=== PATIENT | male | born 1955 | race African-American/Black ===

== ENCOUNTER 2017-11-22 03:00 | Inpatient (IN) | payer MEDICARE, MEDICAID ==
[~2017-11-22] VITALS: Ht 177.8 cm; Wt 116.1 kg
[~2017-11-22 03:00] MED LIST: CIPRO; FLAGYL; NORCO
[2017-11-22 03:40] LABS: BASOPHILS % 0.7 % (0.0-2.0); EOSINOPHILS % 4.2 % (0.0-5.0); HEMATOCRIT. 36.3 % (42.0-52.0); HEMOGLOBIN. 12.3 g/dL (14.0-18.0); MEAN CORPUSCULAR HEMOGLOBIN 29.1 pg (28.0-32.0); MEAN CORPUSCULAR VOLUME 86.2 fL (80.0-94.0); MEAN PLATELET VOLUME 7.7 fl (7.4-10.4); MONOCYTES % 13.4 % (2.0-8.0); NEUTROPHILS % 41.7 % (40.0-76.0); PLATELET 189 x1000/uL (130-400); RED BLOOD CELL COUNT 4.21 mill/uL (4.7-6.1); RED CELL DISTRIBUTION WIDTH 14.1 % (11.6-14.6)
[2017-11-22] MEDS ORDERED: NITROGLYCERIN OINT 1GM/INCH UDPKT TD ONE (03:45)
[2017-11-22 03:46] LABS: CHLORIDE 110 mEq/L (98-107)
[2017-11-22] MEDS ORDERED: ONDANSETRON HCL 4MG/2ML INJ IV STA (04:36)
[2017-11-22] MEDS ORDERED: MORPHINE SULFATE 4 MG/ML CPJ (NOT FOR IM USE) IV STA (04:36)
[2017-11-22] MEDS ORDERED: SODIUM CHLORIDE 0.9% 1,000 ML IV SCH (04:39)
[2017-11-22] MEDS ORDERED: IOHEXOL-350 100 ML BOTTLE ONE (06:29)
[2017-11-22] MEDS ORDERED: DOCUSATE SODIUM 100MG CAPSULE PO PRN (07:00)
[2017-11-22] MEDS ORDERED: ACETAMINOPHEN 325MG TABLET PO PRN (07:00)
[2017-11-22] MEDS ORDERED: NA PHOS,M-B/NA PHOS,DI-BA ENEMA 118ML PR PRN (07:00)
[2017-11-22] MEDS ORDERED: CLONIDINE 0.1MG TABLET PO PRN (07:00)
[2017-11-22] MEDS ORDERED: MAGNESIUM/ALUMINUM HYDROXIDE/SIMETHICONE 30ML UDC PO PRN (07:00)
[2017-11-22] MEDS ORDERED: NITROGLYCERIN 0.4MG TABLET SL SL PRN (07:00)
[2017-11-22] MEDS ORDERED: TRAMADOL 50MG TABLET PO PRN (07:00)
[2017-11-22] MEDS ORDERED: DEXTROSE 50% WATER 50ML SYRINGE IV PRN (07:00)
[2017-11-22] MEDS ORDERED: ONDANSETRON HCL 4MG/2ML INJ IV PRN (07:00)
[2017-11-22] MEDS ORDERED: LORAZEPAM 0.5MG TABLET PO PRN (07:00)
[2017-11-22] MEDS ORDERED: IPRATROPIUM/ALBUTEROL 0.5-3(2.5)MG/3ML NEB INH PRN (07:00)
[2017-11-22] MEDS ORDERED: GUAIFENESIN 200MG/10ML SUGAR FREE UDC PO PRN (07:00)
[2017-11-22 08:25] LABS: ETHANOL BLOOD < 10 mg/dL
[2017-11-22 08:27] LABS: TOTAL IRON BINDING CAPACITY 267 ug/dL (250-450)
[2017-11-22 08:28] LABS: HDL CHOLESTEROL 29 mg/dL (40-59); LDL CHOLESTEROL 46 mg/dL (5-100)
[2017-11-22] MEDS: METOPROLOL TARTRATE 25MG TABLET PO SCH ×2 (09:00→22:10)
[2017-11-22] MEDS: ASPIRIN 325MG EC TABLET PO SCH (09:00)
[2017-11-22] MEDS: FAMOTIDINE 20MG TABLET PO SCH ×2 (09:00→22:08)
[2017-11-22 09:58] LABS: VITAMIN B12 SERUM 524 pg/mL (211-911)
[2017-11-22 10:02] LABS: FOLIC ACID (FOLATE) SERUM > 20.00 ng/mL (>5.38)
[2017-11-22] MEDS: BLOOD SUGAR DIAGNOSTIC STRIP TEST SCH ×3 (12:07→21:00)
[2017-11-22 14:12] VITALS: BP 148/80
[2017-11-22] MEDS ORDERED: POTASSIUM CHLORIDE 20MEQ TABLET SR PO SCH (14:45)
[2017-11-22] MEDS: SUCRALFATE 1 G/10 ML UDC PO SCH ×2 (15:29→22:20)
[2017-11-22] MEDS: LISINOPRIL 20MG TABLET PO SCH ×2 (15:30→22:08)
[2017-11-22 16:00] LABS: CREATINE KINASE 323 IU/L (39-308)
[2017-11-22 16:01] LABS: CREATINE KINASE MB FRACTION 2.5 ng/mL (0.5-3.6)
[2017-11-22] MEDS: INSULIN LISPRO 100 UNITS/ML SUBCUT SCH ×2 (18:00→21:00)
[2017-11-22] MEDS: KETOROLAC 15MG/ML VIAL IV PRN (18:44)
[2017-11-22 20:00] VITALS: BP 131/78
[2017-11-22 20:37] LABS: *AMPHETAMINES SCREEN URINE NEGATIVE (NEGATIVE); *BARBITURATES SCREEN URINE NEGATIVE (NEGATIVE)
[2017-11-22 20:39] LABS: *BENZODIAZEPINES SCREEN URINE NEGATIVE (NEGATIVE); *COCAINE SCREEN URINE NEGATIVE (NEGATIVE); CANNABINOID URINE SCREEN NEGATIVE (NEGATIVE); METHADONE URINE SCREEN NEGATIVE (NEGATIVE); OPIATES URINE SCREEN PRESUMTIVE POSITIVE (NEGATIVE); PHENCYCLIDINE URINE SCREEN NEGATIVE (NEGATIVE)
[2017-11-22] MEDS ORDERED: ZOLPIDEM TARTRATE 5MG TABLET PO PRN (21:00)
[2017-11-22] MEDS: ENOXAPARIN 30MG/0.3ML SYR SUBCUT SCH (22:07)
[2017-11-23] VITALS: BP 128/75
[2017-11-23 04:00] VITALS: BP 131/79
[2017-11-23] MEDS: BLOOD SUGAR DIAGNOSTIC STRIP TEST SCH ×4 (06:50→21:00)
[2017-11-23 08:00] VITALS: BP 130/78
[2017-11-23] MEDS: INSULIN LISPRO 100 UNITS/ML SUBCUT SCH ×3 (08:10→18:10)
[2017-11-23 08:13] LABS: LDL CHOLESTEROL 44 mg/dL (5-100)
[2017-11-23 08:14] LABS: CREATINE KINASE 226 IU/L (39-308)
[2017-11-23 08:15] LABS: HDL CHOLESTEROL 30 mg/dL (40-59)
[2017-11-23 08:17] LABS: CREATINE KINASE MB FRACTION 2.1 ng/mL (0.5-3.6)
[2017-11-23] MEDS: FAMOTIDINE 20MG TABLET PO SCH ×2 (09:24→23:08)
[2017-11-23] MEDS: SUCRALFATE 1 G/10 ML UDC PO SCH ×4 (09:24→17:37)
[2017-11-23] MEDS: LISINOPRIL 20MG TABLET PO SCH ×2 (09:25→23:09)
[2017-11-23] MEDS: ENOXAPARIN 30MG/0.3ML SYR SUBCUT SCH (09:25)
[2017-11-23] MEDS: METOPROLOL TARTRATE 25MG TABLET PO SCH ×2 (09:25→23:10)
[2017-11-23] MEDS: ASPIRIN 325MG EC TABLET PO SCH (09:25)
[2017-11-23] MEDS ORDERED: REGADENOSON 0.4 MG/5 ML IV ONE ×2 (10:15→11:17)
[2017-11-23] MEDS: KETOROLAC 15MG/ML VIAL IV PRN (10:36)
[2017-11-23 11:41] LABS: CHLORIDE 108 mEq/L (98-107)
[2017-11-23 12:37] VITALS: BP 137/76
[2017-11-23 16:00] VITALS: BP 136/71
[2017-11-24] MEDS: BLOOD SUGAR DIAGNOSTIC STRIP TEST SCH (06:55)
[2017-11-24 08:00] VITALS: BP 141/83
[2017-11-24] MEDS: INSULIN LISPRO 100 UNITS/ML SUBCUT SCH (08:10)
[2017-11-24] MEDS: METOPROLOL TARTRATE 25MG TABLET PO SCH ×2 (09:00→09:18)
[2017-11-24] MEDS: ENOXAPARIN 30MG/0.3ML SYR SUBCUT SCH (09:17)
[2017-11-24] MEDS: SUCRALFATE 1 G/10 ML UDC PO SCH (09:17)
[2017-11-24] MEDS: ASPIRIN 325MG EC TABLET PO SCH (09:17)
[2017-11-24] MEDS: LISINOPRIL 20MG TABLET PO SCH (09:18)
[2017-11-24] MEDS: FAMOTIDINE 20MG TABLET PO SCH (09:18)
[2017-11-24] MEDS ORDERED: METF500T6 PO (09:36)
[2017-11-24] MEDS ORDERED: ASPI-1159 PO (09:36)
[2017-11-24] MEDS ORDERED: ATOR-2 PO (09:36)
[2017-11-24] MEDS ORDERED: LOSA50TA20 PO (09:36)
[2017-11-24] MEDS ORDERED: HYDR25TA PO (09:36)
[2017-11-24 11:02] VITALS: BP 141/83
== END 2017-11-24 13:00 | disposition home or self-care (01) | DRG 392 ==
LOC: ER 03:11 → 7WST 04:40 → EDBEDREQTM 04:54 → EDBEDREQ 04:54 → SUPCPDRO 09:25 → ENRESERV 13:04
PROVIDERS: ADMIT Internal Medicine; ATTEND Internal Medicine
DX: K21.9 Gastro-esophageal reflux disease without esophagitis (principal); E66.9 Obesity, unspecified; I10 Essential (primary) hypertension; E11.9 Type 2 diabetes mellitus without complications; F17.210 Nicotine dependence, cigarettes, uncomplicated; E78.5 Hyperlipidemia, unspecified; L40.9 Psoriasis, unspecified; E78.6 Lipoprotein deficiency; R00.1 Bradycardia, unspecified; Z79.4 Long term (current) use of insulin; Z79.899 Other long term (current) drug therapy; Z90.49 Acquired absence of other specified parts of digestive tract; Z68.36 Body mass index [BMI] 36.0-36.9, adult; Z71.6 Tobacco abuse counseling
CPT/HCPCS: 36415; 71045; 71275; 78452; 80048; 80053; 80061; 80305; 82550; 82553; 82607; 82746; 82962; 83036; 83540; 83550; 83735; 83880; 84443; 84484; 85025; 85379; 93005; 93017; 93306; 93970; 96374; 96375; 96376; 99285; A9500; G0482; J1650; J1885; J2270; J2405; J2785; J7030; J7620; Q9967